=== PATIENT | female | born 1985 | race Asian ===

== ENCOUNTER 2016-10-06 09:44 | Emergency (ER) | payer BC ==
[~2016-10-06] VITALS: Ht 149.9 cm; Wt 54.4 kg
[2016-10-06] MEDS ORDERED: ESTARYLLA1 EACH PO (09:55)
[2016-10-06] MEDS ORDERED: LEVETIRACETAM250 MG PO (09:55)
[2016-10-06] MEDS ORDERED: LIORESAL 10 MG10 MG PO (12:36)
[2016-10-06] MEDS ORDERED: NORCO 5-325 TA1 EACH PO (12:43)
[2016-10-06 12:44] VITALS: BP 122/80
== END 2016-10-06 12:56 | disposition home or self-care (01) ==
LOC: ER 09:44
DX: S01.112A Laceration without foreign body of left eyelid and periocular area, initial encounter (principal); S10.93XA Contusion of unspecified part of neck, initial encounter; S70.02XA Contusion of left hip, initial encounter; F10.99 Alcohol use, unspecified with unspecified alcohol-induced disorder; Z90.49 Acquired absence of other specified parts of digestive tract; Z88.0 Allergy status to penicillin; V43.52XA Car driver injured in collision with other type car in traffic accident, initial encounter; Y93.I9 Activity, other involving external motion; Y92.89 Other specified places as the place of occurrence of the external cause; Y99.8 Other external cause status

== ENCOUNTER 2020-05-06 20:55 | Emergency (ER) | payer BC, OTHER ==
[~2020-05-06] VITALS: Ht 149.9 cm; Wt 54.4 kg
[~2020-05-06 20:55] MED LIST: ESTARYLLA1 EACH PO; LEVETIRACETAM250 MG PO; LIORESAL 10 MG10 MG PO; NORCO 5-325 TA1 EACH PO
[2020-05-06 21:08] VITALS: BP 152/96
== END 2020-05-06 22:00 | disposition home or self-care (01) ==
LOC: ER 20:55
DX: S09.90XA Unspecified injury of head, initial encounter (principal); Z90.49 Acquired absence of other specified parts of digestive tract; Z79.899 Other long term (current) drug therapy; Z88.0 Allergy status to penicillin; W18.39XA Other fall on same level, initial encounter; Y93.89 Activity, other specified; Y92.89 Other specified places as the place of occurrence of the external cause; Y99.8 Other external cause status